=== PATIENT | male | born 1935 | race Caucasian/White ===

== ENCOUNTER 2016-10-17 09:48 | Observation (INO) | payer SELFPAY ==
[~2016-10-17] VITALS: Ht 180.3 cm; Wt 82.1 kg
[2016-10-17] MEDS ORDERED: ATROVENT HFA12.9 GM INH (11:06)
[2016-10-17] MEDS ORDERED: ASPIRIN EC PO (11:27)
[2016-10-17] MEDS ORDERED: SALBUTAMOL INH (11:31)
[2016-10-17] MEDS ORDERED: COUMADIN2 MG PO (11:33)
[2016-10-17] MEDS ORDERED: TYLENOL500 MG PO (11:38)
[2016-10-17] MEDS ORDERED: COUMADIN1 MG PO (11:39)
[2016-10-17] MEDS ORDERED: LIPITOR80 MG PO (11:40)
[2016-10-17] MEDS ORDERED: TYLENOL WITH CO1 TAB PO (11:41)
[2016-10-17] MEDS ORDERED: COUMADIN5 MG PO (11:42)
[2016-10-17] MEDS ORDERED: ZETIA10 MG PO (11:46)
[2016-10-17] MEDS ORDERED: [UNRECOGNIZED DRUG - OTHER] PO (12:09)
[2016-10-17] MEDS ORDERED: TYLENOL PM EX-1 EACH PO (12:11)
[2016-10-17] MEDS ORDERED: [UNRECOGNIZED DRUG - OTHER] INH (12:14)
[2016-10-17] MEDS ORDERED: MUCINEX FAST-M180 M3 PO (12:22)
[2016-10-18] MEDS ORDERED: ZITHROMAX250 MG PO (08:53)
[2016-10-18] MEDS ORDERED: PREDNISONE10 MG PO (08:56)
== END 2016-10-18 10:28 | disposition short-term general hospital (02) ==
LOC: ER 09:48 → OBS 13:00 → ER 13:00 → IP 13:00
PROVIDERS: ADMIT Family Medicine
DX: J44.1 Chronic obstructive pulmonary disease with (acute) exacerbation (principal); R09.02 Hypoxemia; I25.10 Atherosclerotic heart disease of native coronary artery without angina pectoris; Z87.891 Personal history of nicotine dependence
CPT/HCPCS: A9150; G0378; J0696; J1030; J2930